=== PATIENT | female | born 1960 | race Caucasian/White ===

== ENCOUNTER → 2017-11-05 | Outpatient (CLI) | payer MEDICAID ==
[~2017-11-05] MED LIST: ACCUNEB0.63 MG/3 INH; ADVAIR 250-501 EACH; AMBIEN 10 MG TA10 MG; AMBIEN 10 MG TA10 MG PO; AMBIEN 5 MG TABL5 MG PO; AMITRIPTYLINE H25 M2 PO; ATIVAN0.5 MG PO; AUGMENTIN 875875 M1 PO; BLOOD PRESSURE; BUDEPRION XL300 MG; CARAFATE 1 GM TA1 G1 PO; CARISOPRODOL 3350 M1; CARISOPRODOL 3350 MG PO; CLARITIN10 M2; CLONIDINE0.1 PO; CORTIZONE-1028 GM TP; DILAUDID8 MG PO; DOXYCYCLINE 10100 M1; DUONEB 2.5-0.5 M3 ML INH; DURAGESIC1 EAC3 TRANSDERM; FENTANYL 1100 MCG/HR; FENTANYL 1100 MCG/HR TP; FENTANYL 1100 MCG/HR TRANSDERM; FENTANYL PATCH75 MCG TRANSDERM; FIORINAL 50-321 EACH PO; FLONASE 0.05%50 MCG; FUROSEMIDE 40 M40 M1; HYDROXYZINE PA100 MG; K-DUR 20 MEQ T20 MEQ PO; KLOR-CON 1010 MEQ PO; LASIX 40 MG TAB40 M1 PO; LEVSIN0.125 MG SUBLING; MIRALAX255 GM PO; MOVANTIK25 MG PO; MS CONTIN15 MG PO; NAPROSYN500 MG PO; NEURONTIN 300300 M1 PO; NEURONTIN 300M300 M2 PO; NEXIUM40 MG; NEXIUM40 MG PO; NORCO 10-325 T1 EACH PO; OMEPRAZOLE20 M2 PO; OPANA10 MG PO; OPANA5 M1 PO; OPANA5 MG PO; OXYCODONE HCL15 MG PO; PERCOCET 5-3251 EACH PO; PERIDEX 0.12%473 M1; PHENERGAN 25 MG25 M1 PO; PHENERGAN 25 MG25 MG PO; PHENERGAN25 M2 RC; POTASSIUM PO; PREDNISONE 5 MG5 M1 PO; PRENATAL; PRILOSEC 10MG C10 M1 PO; PRILOSEC40 MG PO; PROAIR HFA8.5 GM; PROMETHAZINE PO; PROVENTIL INH; PROZAC20 MG PO; RANITIDINE; RANITIDINE 150150 MG PO; RANITIDINE PO; REGLAN 10 MG TA10 MG PO; RELACOR SUBQ; RELAFEN750 MG PO; RELISTOR8 MG/0.4 M SQ; REQUIP 1 MG TABL1 M1 PO; ROXICODONE15 M1; ROXICODONE15 M1 PO; SINGULAIR 10 MG10 M1 PO; SYMBICORT160 MCG/4. INH; TOPROL XL25 MG PO; TRAMADOL 50 MG50 MG; TRAMADOL 50 MG50 MG PO; ULTRAM 50MG TAB50 MG PO; VITAMIN D 5050000 I1; VITAMIN D 5050000 I1 PO; VITAMIN D-32000 UNIT PO; WELLBUTRIN SR150 MG PO; ZANAFLEX4 MG PO; ZANTAC 150MG T150 M1; ZANTAC 150MG T150 M1 PO; ZOFRAN ODT4 MG PO; ZOFRAN4 MG PO; [UNRECOGNIZED DRUG - OTHER]
--- NOTE | 2017-11-06 10:21 | PAINCON ---
[address] [address] PAIN MANAGEMENT CONSULTATION Name: JACK ADKINS Room: [facility] LILLY Wade#: [id number] Admission: 11/05/17 Attend Phys: Issa Sagastume Discharge: Date of : 56 Report #: [id number] THIS REPORT FOR: //name// CC: Physician staff Darian Anderson DATE OF SERVICE: 11/05/2017 HISTORY OF PRESENT ILLNESS: The patient is a 57-year-old female typically treated for axial back pain, lumbar radiculopathy. She is status post cervical decompressive laminectomy, chronic pain syndrome requiring complex medication management. The patient was last seen in the pain clinic on 08/13/2017, continued on baseline medications. The patient returns to the pain clinic today noting medications generally providing sufficient analgesia to participate in activities of daily living, rates the pain as 6 on a VAS. She is seen in the company of her significant other who is supportive. She actually looks better today than she had in some time. She is well groomed. She is in a wheelchair, but is able to get up from the chair and moves somewhat without significant assistance. She reports no problems with daytime somnolence, mental acuity changes, constipation. She notes pain is primarily low back, legs, feet. She would like an epidural injection, last epidural injection, I believe, in April had afforded good transient relief (actually about 60% relief for several months) of back and radicular pain. We reviewed the fact that opiate medications are being used to provide analgesia adequate to support activities of daily living, not attempting to achieve a specific pain score on the 0-10 Visual Analog Scale. The current opiate medications are providing sufficient analgesia to allow the patient to participate in activities of daily living. The patient is not exhibiting any aberrant behavior suggestive of drug diversion. The patient is not having any adverse reactions to medications. The patient is not suffering from daytime somnolence or mental acuity changes. The patient is managing opiate-induced constipation with appropriate aqme-vls-pfdlcif agents and dietary considerations. The patient was counseled on concern for caution with operating a motor vehicle while using opiate medications. A physical exam was performed and the patient's functional status was evaluated. All patients with back pain were advised against the bed rest greater than 4 days and were advised to return to normal activities. Pain score assessment was noted and the treatment plan was reviewed with [place] [address] PAIN MANAGEMENT CONSULTATION Name: CLEOPATRAJACK L Room: [facility]#: [id number] Admission: 11/05/17 Attend Phys: Issa Sagastume Discharge: Date of : 56 Report #: [id number] medications, both prescribed and OTC were reviewed and reconciled on the electronic medical record. Tobacco screening was accomplished and smoking cessation was advised when indicated. BMI was noted and diet/exercise modification was recommended for all patients following outside normal parameters. I reviewed with the patient today their responsibilities to safeguard prescription medications, reviewed their responsibility to utilize medications only as prescribed by the physician. They are to seek and receive pain medications only from 1 physician group ( [facility]). They are to use 1 pharmacy and keep the clinic informed if they change pharmacies. Their responsibilities include making followup visits in a timely fashion and to avoid abrupt discontinuation of medication usage. Their responsibilities further include bringing their medications (bottles from the pharmacy with residual pills) to the visit for possible confirmation of pill counts and the patient understands it is their responsibility to submit to random drug screens to ensure both that the medications prescribed are present, and that no other controlled substances are present. All prescriptions provided today were generated electronically. PHYSICAL EXAMINATION: GENERAL: Shows a 57-year-old female, 5 feet 9 inches, BMI is approximately 30 kilograms per meter squared. VITAL SIGNS: Blood pressure 138/83, pulse 66, respirations 16. NEUROLOGIC: Alert and oriented to person, place and time, judged to be a reasonable historian. MUSCULOSKELETAL: Lower extremity strength is diminished, but symmetric. Modestly positive straight leg raise. Diffuse tenderness across the low back. Cervical range of motion is limited. Upper extremity strength is preserved. ASSESSMENT: Symptomatic lumbar radiculopathy, axial back pain, history of cervical decompressive laminectomy, chronic pain syndrome requiring complex medication management. RECOMMENDATIONS: 1. I did today provide for the patient [facility] [employer] Vehicle Form 177, she is unable to walk greater than 50 feet without assistance. This is unfortunately permanent condition. 2. We will continue baseline medications unchanged including Duragesic 100 mcg q. 48 hours and Opana IR 5 mg q.i.d. 3. We discussed in the past that this is a supratherapeutic load of opiate; however, when we trialed lower doses, the patient has had a significant decrease in functional status. I have taken the liberty of continuing baseline adjuvant agents including gabapentin, Phenergan, Fiorinal and Reglan for nausea. [facility] [address] [place] [address] PAIN MANAGEMENT CONSULTATION Name: JEDJACK Nice [facility] [id number] Admission: 11/05/17 Attend Phys: Issa Sagastume Discharge: Date of : 56 Report #: [id number] Follow up in 2 months for reevaluation. <ELECTRONICALLY SIGNED> By: Darian Anderson DO 11/06/17 1021 1223 1929H[facility] Infirmaryingris Anderson DO /nt
== END ==
LOC: M.PC 03:37
DX: M54.16 Radiculopathy, lumbar region (principal); Z98.890 Other specified postprocedural states; Z79.899 Other long term (current) drug therapy

== ENCOUNTER → 2017-12-31 | Outpatient (CLI) | payer MEDICAID ==
--- NOTE | 2018-01-01 09:37 | PAINCON ---
[address] [address] PAIN MANAGEMENT CONSULTATION Name: JACK ADKINS [id number] Admission: 12/31/17 Attend Phys: Issa Sagastume Discharge: Date of : 56 Report #: [id number] THIS REPORT FOR: //name// CC: Physician staff Darian Anderson DATE OF SERVICE: 12/31/2017 HISTORY OF PRESENT ILLNESS: The patient is a 57-year-old female prior seen in the pain clinic on 11/05/2017. The patient has been long managed for lumbar radiculopathy. She is status post cervical decompressive laminectomy, chronic pain syndrome requiring complex medication management. Significantly debilitated, stable on narcotic medication, actually weaned down over time, but still taking a supratherapeutic opiate, managed at 100 mcg Duragesic q.48 hours, Opana for breakthrough pain 5 mg q.i.d. Co-analgesics include gabapentin 300 mg 2 in the morning, 4 at night; tizanidine 4 mg t.i.d., Movantik for opiate-induced constipation. She returns to the pain clinic today noting subjective pain score 6 on a VAS. Pain is primarily low back, neck, bilateral legs. PHYSICAL EXAMINATION: GENERAL: Shows a 5 feet 9, approximately 200 pounds female. VITAL SIGNS: Blood pressure is 127/73, pulse is 82, respirations 16. NEUROLOGIC: Alert and oriented to person, place and time, judged to be a reasonable historian. MUSCULOSKELETAL: Cervical range of motion is modestly limited. Upper extremity strength is diminished, but symmetric. Diffuse tenderness across the low back. Lower extremity strength is diminished. She spends a great deal of time in a wheelchair. She does get up and transfers on her own. We have tried at a great deal to encourage increased activity. The patient states she has had not improved axial back pain and radicular pain with epidural injections in the past, last injection was in April. She states that she has been unable to increase functional activity with injections in the past. Physical exam again does show a fairly deconditioned 57-year-old female, though she is alert and oriented to person, place and time, judged to be a reasonable historian. Skin integument is intact. She has had multiple lesions in the past, though these seem to be resolved. We reviewed the fact that opiate medications are being used to provide analgesia adequate to support activities of daily living, not attempting to achieve a specific pain score on the 0-10 Visual Analog Scale. The current opiate medications are providing sufficient analgesia to allow the patient to participate in activities of daily living. The patient is not exhibiting any aberrant behavior suggestive of drug diversion. The [place] [address] PAIN MANAGEMENT CONSULTATION Name: JACK ADKINS [facility] [id number] Admission: 12/31/17 Attend Phys: Issa Sagastume Discharge: Date of : 56 Report #: [id number] adverse reactions to medications. The patient is not suffering from daytime somnolence or mental acuity changes. The patient is managing opiate-induced constipation with appropriate bugf-xyj-unrrazg agents and dietary considerations. The patient was counseled on concern for caution with operating a motor vehicle while using opiate medications. A physical exam was performed and the patient's functional status was evaluated. All patients with back pain were advised against the bed rest greater than 4 days and were advised to return to normal activities. Pain score assessment was noted and the treatment plan was reviewed with the patient. All current medications, both prescribed and OTC were reviewed and reconciled on the electronic medical record. Tobacco screening was accomplished and smoking cessation was advised when indicated. BMI was noted and diet/exercise modification was recommended for all patients following outside normal parameters. I reviewed with the patient today their responsibilities to safeguard prescription medications, reviewed their responsibility to utilize medications only as prescribed by the physician. They are to seek and receive pain medications only from 1 physician group ( [facility]). They are to use 1 pharmacy and keep the clinic informed if they change pharmacies. Their responsibilities include making followup visits in a timely fashion and to avoid abrupt discontinuation of medication usage. Their responsibilities further include bringing their medications (bottles from the pharmacy with residual pills) to the visit for possible confirmation of pill counts and the patient understands it is their responsibility to submit to random drug screens to ensure both that the medications prescribed are present, and that no other controlled substances are present. All prescriptions provided today were generated electronically. ASSESSMENT: Chronic axial back pain, lumbar radiculopathy, history of cervical decompressive laminectomy in a patient with significant comorbidities including anxiety and debilitation. RECOMMENDATION: I had a long discussion with the patient today about increasing functional status. I told her we will start to wean opiate during the warm weather. We will drop from 100 mcg q.48 hours to 75 mcg q.48 hours. We will not change her Opana IR 5 mg q.i.d. With a combination of fentanyl and Opana, her percentage decrease in opiate is fairly small. If she notices much change, I think it will be more psychosomatic. We will continue gabapentin, Requip, tizanidine unchanged, does use Fiorinal for headaches. Did discuss with the patient that I am leaving the practice and that we will endeavor to find another physician to treat her, however did point out that she taking what is, by definition, a supratherapeutic opiate dose of medication and another physician may well consider further [place] [address] PAIN MANAGEMENT CONSULTATION Name: JACK ADKINS Room: [facility]#: [id number] Admission: 12/31/17 Attend Phys: Issa Sagastume Discharge: Date of : 56 Report #: [id number] Lumbar epidural injection today to help with acute radicular pain. Strongly encouraged increased activity as noted above. ASSESSMENT: 1. Symptomatic lumbar radiculopathy. PROCEDURE: lumbar epidural injection with fluoroscopy. PROCEDURE NOTE: After both written and informed consent to include risk of spinal cord damage, increased pain, weakness and dural puncture, the patient was taken to the fluoroscopy suite, placed in the prone position. After sterile prep and drape, a skin wheal with lidocaine was raised. A 22-gauge epidural Tuohy needle was inserted in the midline at L4-L5 with good loss to resistance. Negative aspiration for cerebrospinal fluid or blood was noted. Then 1 mL of Omnipaque under biplanar fluoroscopy showed good spread within the epidural space. This was followed with 80 mg of triamcinolone plus 1 mL of 1.5% preservative-free Xylocaine, 0.5 mL Xylocaine was then injected to flush the needle; it was removed. The patient was monitored for an appropriate period of time and discharged in good and stable condition. 2. Chronic axial back pain, lumbar radiculopathy, chronic pain syndrome requiring complex medication management, general debility. RECOMMENDATION: Increase physical activity with specific recommendation to at least get out of her wheelchair 5 minutes at a stretch both morning and evening. We will continue medication with the decreasing Duragesic as noted above. Follow up in 2 months for reevaluation. <ELECTRONICALLY SIGNED> By: Darian Anderson DO 01/01/18 0937 [id number] [id number] Anderson DO /nt
== END | disposition home or self-care (01) ==
LOC: M.PC 04:38
DX: M54.16 Radiculopathy, lumbar region (principal); G89.4 Chronic pain syndrome; F41.9 Anxiety disorder, unspecified; R53.81 Other malaise; Z79.891 Long term (current) use of opiate analgesic; Z98.890 Other specified postprocedural states; Z88.2 Allergy status to sulfonamides; Z88.8 Allergy status to other drugs, medicaments and biological substances; Z79.899 Other long term (current) drug therapy

== ENCOUNTER → 2018-02-25 | Outpatient (CLI) | payer MEDICAID ==
--- NOTE | 2018-02-26 07:56 | PAINCON ---
[facility] [address] [place] [address] PAIN MANAGEMENT CONSULTATION Name: JACK ADKINS Room: [facility] Wade#: [id number] Admission: 02/25/18 Attend Phys: Issa Sagastume Discharge: Date of : 56 Report #: [id number] THIS REPORT FOR: //name// CC: Physician staff Darian Anderson DATE OF SERVICE: 02/25/2018 The patient is an unfortunate 57-year-old female, long treated for chronic pain syndrome. She is status post cervical decompressive laminectomy, has ongoing lumbar radicular pain, axial back pain, peripheral neuropathy, neuropathic pain requiring complex medication management. Comorbidities include chronic headaches and struggles with nausea and OIC. Last visit, we decreased Duragesic from 100 mcg to 75 mcg q.48h. Continued Opana 5 mg up to 4 a day. Gabapentin 300 mg 2 in the morning, 4 at night; tizanidine 4 mg t.i.d. and Movantik for OIC. Returns to pain clinic today. She notes Movantik is helping her to have a bowel movement about every other day. Headaches seem to exacerbate her nausea. She fell in a bathtub recently, did some trauma to her right knee as well as ballottable edema, the ligaments appeared to be intact. She notes epidural injection at last visit afforded some 70% relief about 4 weeks. Pain has begun to recur. Pain is primarily low back, buttock, and legs. Paresthesia into the right foot. PHYSICAL EXAMINATION: Otherwise notes the patient in a wheelchair, fairly disabled, deconditioned. Height 69 inches. She is unable to stand for a weight, though BMI appears to be about 27 kilograms per meter squared. Blood pressure is 121/93, pulse 71, respirations 16. Alert and oriented to person, place and time, judged to be a reasonable historian. Lower extremity strength is diminished, but symmetric. Straight leg raise is modestly positive on the right. Diffuse tenderness across the low back. No discrete trigger points noted. We reviewed the fact that opiate medications are being used to provide analgesia adequate to support activities of daily living, not attempting to achieve a specific pain score on the 0-10 Visual Analog Scale. The current opiate medications are providing sufficient analgesia to allow the patient to participate in activities of daily living. The patient is not exhibiting any aberrant behavior suggestive of drug diversion. The patient is not having any adverse reactions to medications. The patient is not suffering from daytime somnolence or mental acuity changes. The patient is managing opiate-induced constipation with appropriate mqei-yzs-fcijznm agents and dietary considerations. The patient was counseled on concern [place] [address] PAIN MANAGEMENT CONSULTATION Name: JACK ADKINS Room: [facility] JOE Olvera#: [id number] Admission: 02/25/18 Attend Phys: Issa Sagastume Discharge: Date of : 56 Report #: [id number] a motor vehicle while using opiate medications. A physical exam was performed and the patient's functional status was evaluated. All patients with back pain were advised against the bed rest greater than 4 days and were advised to return to normal activities. Pain score assessment was noted and the treatment plan was reviewed with the patient. All current medications, both prescribed and OTC were reviewed and reconciled on the electronic medical record. Tobacco screening was accomplished and smoking cessation was advised when indicated. BMI was noted and diet/exercise modification was recommended for all patients following outside normal parameters. I reviewed with the patient today their responsibilities to safeguard prescription medications, reviewed their responsibility to utilize medications only as prescribed by the physician. They are to seek and receive pain medications only from 1 physician group ( [facility]). They are to use 1 pharmacy and keep the clinic informed if they change pharmacies. Their responsibilities include making followup visits in a timely fashion and to avoid abrupt discontinuation of medication usage. Their responsibilities further include bringing their medications (bottles from the pharmacy with residual pills) to the visit for possible confirmation of pill counts and the patient understands it is their responsibility to submit to random drug screens to ensure both that the medications prescribed are present, and that no other controlled substances are present. All prescriptions provided today were generated electronically. ASSESSMENT #1: Symptomatic lumbar radiculopathy in a patient with multiple comorbidities including chronic axial back pain, status post cervical decompressive laminectomy, chronic opiate-induced constipation, nausea and headaches, restless legs syndrome, Requip at 2 mg at bedtime not affording adequate relief. RECOMMENDATION: 1. Increase Requip from 2-3 tablets at bedtime (1 mg tablets). Continue Opana 5 mg, this is a scored tablet. Encouraged her to use a half to one tablet up to 4 times a day, have her do a pill count in 2 months. If we can start to wean this agent that would be beneficial. Likely drop to t.i.d. next visit. May consider decreasing Duragesic to 50 mcg at some point in the fall. I have taken the liberty of writing for 2 months of her Opana. We will continue Duragesic at a lower dose of 75 mcg q.48h., again 2 prescriptions for this. Continue Fiorinal as needed for headaches 1 tablet t.i.d., 90 tablets, 1 refill. Continue gabapentin 300 mg 2 in the morning, 4 at night, 1 refill with 180 tablets and continue Phenergan 25 mg p.o. nausea and vomiting, limit 45 tablets with 1 refill. ASSESSMENT #2: Acute exacerbation [place] [address] PAIN MANAGEMENT CONSULTATION Name: JACK ADKINS Room: [facility]#: [id number] Admission: 02/25/18 Attend Phys: Issa Sagastume Discharge: Date of : 56 Report #: [id number] PROCEDURE: Lumbar epidural injection under fluoroscopy. PROCEDURE NOTE: After both written and informed consent to include risk of spinal cord damage, increased pain, weakness and dural puncture, the patient was taken to the fluoroscopy suite, placed in the prone position. After sterile prep and drape, a skin wheal with lidocaine was raised. A 22-gauge epidural Tuohy needle was inserted in the midline at L5-S1 with good loss to resistance. Negative aspiration for cerebrospinal fluid or blood was noted. Then 1 mL of Omnipaque under biplanar fluoroscopy showed good spread within the epidural space. This was followed with 80 mg of triamcinolone plus 1 mL of 1.5% preservative-free Xylocaine, 0.5 mL Xylocaine was then injected to flush the needle; it was removed. The patient was monitored for an appropriate period of time and discharged in good and stable condition. The patient was given contact information for pain clinic providers for followup. I did take the liberty of actually writing for 3 months of her schedule [address]. I do not believe Dr. Talbot is accepting new Medicaid patients. We did give her a list of possible Medicaid physicians. <ELECTRONICALLY SIGNED> By: Darian Anderson DO 02/26/18 0756 1242 1955Darian Anderson DO /nt
== END | disposition home or self-care (01) ==
LOC: M.PC 04:15
DX: M54.16 Radiculopathy, lumbar region (principal); G89.4 Chronic pain syndrome; M54.5 Low back pain; G44.89 Other headache syndrome; G25.81 Restless legs syndrome; Z98.890 Other specified postprocedural states; Z79.891 Long term (current) use of opiate analgesic; Z79.899 Other long term (current) drug therapy; Z88.2 Allergy status to sulfonamides; Z88.8 Allergy status to other drugs, medicaments and biological substances

== ENCOUNTER → 2018-05-04 | Outpatient (CLI) | payer MEDICAID | LOC: M.MRI 04-30 13:30 | DX: M51.16 Intervertebral disc disorders with radiculopathy, lumbar region (principal); M50.223 Other cervical disc displacement at C6-C7 level; M50.123 Cervical disc disorder at C6-C7 level with radiculopathy; M48.061 Spinal stenosis, lumbar region without neurogenic claudication; M48.02 Spinal stenosis, cervical region ==

== ENCOUNTER 2019-10-15 21:58 | Emergency (ER) | payer MEDICAID ==
[~2019-10-15] VITALS: Ht 175.3 cm; Wt 81.6 kg
--- NOTE | ~2019-10-15 | EKG ---
[place] [address] ELECTROCARDIOGRAM REPORT Name: JACK ADKINS Room: [facility]#: [id number] Admission: 10/15/19 Attend Phys: Discharge: Date of : 56 Date of Service: 10/15/192202 Report #: [id number] THIS REPORT FOR: cc: Arelis Kulkarni MD, Regina MD Epiphany, Epiphany MD ~ THIS REPORT FOR: //name// [facility] ED Test Date: 2019-10-15 Test Time: 22:03:48 Pat Name: JACK ADKINS Department: Room: Gender: F [employer]: [place] : 1960 Requested By: Sujata Pozo Order Number: [id number] MD: Measurements Intervals [place] Rate: 77 P: 29 WV: 200 QRS: -2 QRSD: 109 T: 9 QT: 425 QTc: 482 Interpretive Statements Sinus rhythm Inferior infarct, old Probable anterior infarct, age indeterminate Compared to ECG 11/30/2011 12:04:11 Myocardial infarct finding now present Prolonged QT interval no longer present [email or web address] By: 02 02 Epiphany Epiphany, /INGRIS
[2019-10-15 22:32] LABS: ABSOLUTE BASOPHILS 0.1 thou/uL (0.0-0.2); ABSOLUTE EOSINOPHILS 0.1 thou/uL (0.0-0.7); ABSOLUTE LYMPHOCYTES 2.2 thou/uL (0.8-5.3); ABSOLUTE MONOCYTES 0.5 thou/uL (0.0-1.2); ABSOLUTE NEUTROPHILS 5.9 thou/uL (1.6-8.1); BASOPHILS 0.8 %; EOSINOPHILS 0.8 %; HEMATOCRIT 36.6 % (37.0-47.0); HEMOGLOBIN 12.2 gm/dL (12.0-15.0); LYMPHOCYTES 25.1 %; MCH 29.4 pg (26.0-34.0); MCHC 33.4 g/dL (28.0-37.0); MCV 88.2 fL (80.0-100.0); MONOCYTES 5.6 %; MPV 8.8 fl. (7.2-11.1); NUCLEATED RBCS 0 /100WBC; PLATELET COUNT* 257 thou/uL (150-400); POLYS 67.7 %; RBC 4.15 mil/uL (4.20-5.00); RDW-CV 13.3 % (10.5-14.5); WBC 8.8 thou/uL (4.0-11.0)
[2019-10-15 22:39] LABS: BE -5.6 mmol/L (-2 to +3); PCO2 34.8 mmHg (35.0-45.0); PO2 81.3 mmHg (75.0-100.0); pH 7.358 (7.340-7.450)
[2019-10-15 22:41] LABS: CREATININE 1.2 mg/dL (0.6-1.3); POTASSIUM 3.1 mmol/L (3.5-5.1)
[2019-10-15 22:51] LABS: ALBUMIN 3.3 g/dL (3.4-5.0); TOTAL BILIRUBIN 0.1 mg/dL (<0.1-1.0); TOTAL PROTEIN 7.7 g/dL (6.4-8.2)
[2019-10-16 00:28] LABS: URINE BILIRUBIN NEGATIVE (Negative); URINE BLOOD NEGATIVE (Negative); URINE CLARITY CLEAR; URINE COLOR YELLOW; URINE GLUCOSE-RANDOM NEGATIVE (Negative); URINE KETONES NEGATIVE (Negative); URINE LEUKOCYTES-REFLEX NEGATIVE (Negative); URINE NITRITE-REFLEX NEGATIVE (Negative); URINE PROTEIN NEGATIVE (Negative); URINE UROBILINOGEN 0.2 E.U./dl (0.2-1.0)
[2019-10-16 01:10] VITALS: BP 124/66
== END 2019-10-16 01:10 | disposition home or self-care (01) ==
LOC: M.ERS 21:58
PROVIDERS: Emergency Medicine
DX: R06.00 Dyspnea, unspecified (principal); F32.9 Major depressive disorder, single episode, unspecified; G43.909 Migraine, unspecified, not intractable, without status migrainosus; Z90.49 Acquired absence of other specified parts of digestive tract; Z98.890 Other specified postprocedural states; Z90.710 Acquired absence of both cervix and uterus; Z88.1 Allergy status to other antibiotic agents; Z88.2 Allergy status to sulfonamides; Z88.6 Allergy status to analgesic agent; Z88.8 Allergy status to other drugs, medicaments and biological substances